=== PATIENT | female | born 1965 | race Caucasian/White ===

== ENCOUNTER 2016-03-14 11:17 | Inpatient (IN) | payer OTHER, MEDICAID ==
--- NOTE | 2016-03-14 11:42 | EDPHY ---
H & P Stated Complaint: Ativan OD - Personal History LMP (Females 10-55): Irregular Current Tetanus/Diphtheria Vaccine: Unsure - Medical/Surgical History Hx Asthma: No Hx Chronic Respiratory Disease: No Hx Diabetes: No Hx Cardiac Disease: No Hx Renal Disease: No Hx Cirrhosis: No Hx Alcoholism: No Hx HIV/AIDS: No Hx Splenectomy or Spleen Trauma: No Other PMH: migraine - Social History Smoking Status: Never smoked Constitutional: Initial Vital Signs Temperature (C) 36.4 C 03/14/16 11:17 Heart Rate 92 03/14/16 11:17 Respiratory Rate 16 03/14/16 11:17 Blood Pressure 132/88 H 03/14/16 11:17 O2 Sat (%) 98 03/14/16 11:17 O2 Delivery Mode Room Air Allergies/Adverse Reactions: corn syrup Allergy (Intermediate, Verified 03/14/16 11:20) MIGRAINES diphenhydramine HCl [From Benadryl] Allergy (Intermediate, Verified 03/14/16 11: 20) Other-Enter Comments metoclopramide HCl [From Reglan] Allergy (Intermediate, Verified 03/14/16 11:20) Other-Enter Comments morphine [Morphine] Allergy (Intermediate, Verified 03/14/16 11:20) Other-Enter Comments tetracycline [Tetracycline] Allergy (Verified 03/14/16 11:20) Hives DAIRY Allergy (Unknown, Uncoded 03/14/16 11:20) Home Medications: Medication Instructions Recorded Amphetamine 03/14/16 Ativan 03/14/16 Oxcarbazepine 03/14/16 Rizatriptan 03/14/16 Tramadol HCl 03/14/16 Trazodone HCl 03/14/16 Zolpidem Tartrate 03/14/16 Medical Decision Making ED Course/Re-evaluation: CHIEF COMPLAINT: Suicide attempt HISTORY OF PRESENT ILLNESS: 50-year-old female who apparently has had some difficulties in relationship and took numerous Ativan this morning in an attempt to kill herself. She is still actively stating that she would like to . She asked me if I could help her . She denies taking anything except somewhere between 7 and 14 1 mg Ativan. She is otherwise not forthcoming with much information. She denies any recent traumas or illness or any significant medical problems. REVIEW OF SYSTEMS: A 10 point review of systems was performed and is negative with the exception of the elements mentioned in the history of present illness. PHYSICAL EXAM: HR, BP, O2 Sat, RR. Temp noted General Appearance: Alert, well hydrated, appropriate, and non-toxic appearing. Head: Atraumatic without scalp tenderness or obvious injury Eyes: Pupils equal, round, reactive to light and accommodation, EOMI, no trauma , no injection. Ears: Clear bilaterally, no perforation, normal landmarks Nose: Atraumatic, no rhinorrhea, clear. Throat: There is no erythema or exudates, no lesions, normal tonsils, mucus membranes moist. Neck: Supple, 2+ carotid upstroke, nontender, no lymphadenopathy. Respiratory: No retractions, no distress, no wheezes, and no accessory muscle use. Lungs are clear to auscultation bilaterally. Cardiovascular: Regular rate and rhythm, no murmurs, rubs, or gallops. Bilateral carotid, radial, dorsalis pedis, and posterior tibial pulses intact. Good capillary refill all extremities. Gastrointestinal: Abdomen is soft, nontender, non-distended, no masses, no rebound, no guarding, no peritoneal signs. Musculoskeletal: Normal active ROM of all extremities, atraumatic. Neurological: Alert, appropriate, and interactive. The patient has normal DTRs and non-focal cranial nerves, motor, sensory, and cerebellar exam. Skin: No rashes, good turgor, no nodules on palpation. Past medical history: Depression, insomnia Past surgical history: Noncontributory Family history: Noncontributory Social history: , children, employed, does not abuse tobacco drugs or alcohol DIFFERENTIAL DIAGNOSIS: The differential diagnosis for the patient's depression included but was not limited to functional and major depression, situational depression, medication side effect, drugs, and alcohol abuse. MEDICAL DECISION MAKING: This patient took several Ativan. Although she is slurring her speech slightly she is alert and oriented. She is asking me to call Wilfrido Jorgensen her close friend and I have done that and he is on his way to the hospital. Laboratory studies including acetaminophen and salicylates levels are pending. Alcohol level is pending although she does not smell like alcohol. She has normal vital signs maintaining her airway well and is not requiring any intervention on my behalf at this time. She has been placed on hold by the [facility]. She will be psychiatrically evaluated once she is clinically sober. (Chato James) 1600: The patient is signed out by Dr. Chato James at change of shift. Awaiting evaluation by Psychiatric Services. I evaluated the patient he is stable. (Shara Lewis) - Data Points Laboratory Results: Laboratory Results 03/14/16 11:35 03/14/16 11:35 03/14/16 03/14/16 11:50 11:35 WBC 6.61 10^3/uL (3.80-9.50) RBC 4.40 10^6/uL (4.18-5.33) Hgb 13.7 g/dL (12.6-16.3) Hct 39.2 % (38.0-47.0) MCV 89.1 fL (81.5-99.8) MCH 31.1 pg (27.9-34.1) MCHC 34.9 g/dL (32.4-36.7) RDW 11.8 % (11.5-15.2) Plt Count 283 10^3/uL (150-400) MPV 9.7 fL (8.7-11.7) Neut % (Auto) 69.0 % (39.3-74.2) Lymph % (Auto) 22.1 % (15.0-45.0) [place] % (Auto) 7.4 % (4.5-13.0) Eos % (Auto) 0.6 % (0.6-7.6) Baso % (Auto) 0.6 % (0.3-1.7) Nucleat RBC Rel Count 0.0 % (0.0-0.2) Absolute Neuts (auto) 4.56 10^3/uL (1.70-6.50) Absolute Lymphs (auto) 1.46 10^3/uL (1.00-3.00) Absolute Monos (auto) 0.49 10^3/uL (0.30-0.80) Absolute Eos (auto) 0.04 10^3/uL (0.03-0.40) Absolute Basos (auto) 0.04 10^3/uL (0.02-0.10) Absolute Nucleated RBC 0.00 10^3/uL (0-0.01) Immature Gran % 0.3 % (0.0-1.1) Immature Gran # 0.02 10^3/uL (0.00-0.10) Sodium 141 mEq/L (134-144) Potassium 4.2 mEq/L (3.5-5.2) Chloride 105 mEq/L (97-110) Carbon Dioxide 26 mEq/l (22-31) Anion Gap 10 mEq/L (8-16) BUN 15 mg/dL (7-23) Creatinine 0.8 mg/dL (0.6-1.0) Estimated GFR > 60 Glucose 100 mg/dL (70-100) Calcium 9.2 mg/dL (8.5-10.4) Beta HCG, Qual NEGATIVE Salicylates 3.4 mg/dL (2.0-20.0) Urine Opiates Screen NEGATIVE (NEGATIVE) Acetaminophen < 10 L mcg/mL (10.0-30.0) Urine Barbiturates NEGATIVE (NEGATIVE) Ur Phencyclidine Scrn NEGATIVE (NEGATIVE) Ur Amphetamine Screen NON-NEGATIVE H (NEGATIVE) U Benzodiazepines Scrn NON-NEGATIVE H (NEGATIVE) Urine Cocaine Screen NEGATIVE (NEGATIVE) U Marijuana (THC) Screen NEGATIVE (NEGATIVE) Ethyl Alcohol < 10 mg/dL (0-10) Departure - Departure Clinical Impression: Polysubstance abuse, Attempted suicide Condition: Serious Referrals: Blossom Zuñiga MD [Primary Care Provider] - As per Instructions
[2016-03-14 11:47] LABS: % IMMATURE GRANULYOCYTES 0.3 % (0.0-1.1); ABSOLUTE IMMATURE GRANULOCYTES 0.02 10^3/uL (0.00-0.10); ADD DIFF? NO; ADD MORPH? NO; ADD SCAN? NO; ATYPICAL LYMPHOCYTE FLAG 0 (0-99); FRAGMENT RBC FLAG 0 (0-99); HEMATOCRIT 39.2 % (38.0-47.0); HEMOGLOBIN 13.7 g/dL (12.6-16.3); LEFT SHIFT FLG 0 (0-99); LIPEMIA HEMOLYSIS FLAG 90 (0-99); MEAN CELL HEMOGLOBIN 31.1 pg (27.9-34.1); MEAN CELL HEMOGLOBIN CONCENTR. 34.9 g/dL (32.4-36.7); MEAN CELL VOLUME 89.1 fL (81.5-99.8); MEAN PLATELET VOLUME 9.7 fL (8.7-11.7); PLATELET CLUMPS FLAG 0 (0-99); PLATELET COUNT 283 10^3/uL (150-400); RED CELL DISTRIBUTION WIDTH 11.8 % (11.5-15.2)
[2016-03-14 12:01] LABS: ANION GAP 10 mEq/L (8-16); CALCIUM 9.2 mg/dL (8.5-10.4); CARBON DIOXIDE 26 mEq/l (22-31); CHLORIDE 105 mEq/L (97-110); CREATININE 0.8 mg/dL (0.6-1.0); ETHANOL SERUM < 10 mg/dL (0-10); GLOMERULAR FILTRATION RATE > 60; GLUCOSE 100 mg/dL (70-100); POTASSIUM 4.2 mEq/L (3.5-5.2); SALICYLATE 3.4 mg/dL (2.0-20.0); SODIUM 141 mEq/L (134-144)
[2016-03-14] MEDS ORDERED: ACETAMINOPHEN 325 MG TAB PO PRN (20:45)
[2016-03-14] MEDS: traZODone 50 MG TAB PO PRN (21:24)
[2016-03-14] MEDS: ZOLPIDEM TARTRATE 5 MG TAB PO PRN (21:24)
[2016-03-15 06:13] VITALS: O2SAT 94
[2016-03-15] MEDS ORDERED: NON-FORMULARY NEW DRUG OP PRN ×2 (13:39→14:58)
[2016-03-15] MEDS: NON-FORMULARY NEW DRUG OP PRN ×3 (17:57→22:05)
[2016-03-15] MEDS: hydrOXYzine HCL 50 MG TAB PO PRN (19:29)
[2016-03-15] MEDS ORDERED: LORazepam 1 MG TAB PO ONE (20:00)
--- NOTE | 2016-03-15 20:40 | SOAPPROG ---
SOAP Progress Note Assessment/Plan: Assessment: Plan: Objective: Vital Signs Temp Pulse Resp BP Pulse Ox 36.6 C 91 12 93/61 L 94 03/15/16 06:00 03/15/16 06:00 03/15/16 06:00 03/15/16 06:00 03/15/16 06:00 ICD10 Worksheet Patient Problems: Problems Problem Status Diagnosed Attempted suicide Acute DVT prophylaxis Acute Headache Acute Polysubstance abuse Acute Thrombocytopenia Acute Travel sickness Acute Elevated liver enzymes Acute
[2016-03-15] MEDS ORDERED: OXcarbazepine 300 MG TAB PO SCH (21:00)
--- NOTE | 2016-03-15 21:48 | BCON ---
[f rep st] BEHAVIORAL HEALTH CONSULTATION INTERNAL MEDICINE CONSULTATION DATE OF CONSULTATION: 03/15/2016 REFERRING PHYSICIAN: Denise Austin MD REASON FOR CONSULTATION: Medical clearance for Inpatient Behavioral Health stay. HISTORY OF PRESENT ILLNESS: Mrs. White came to the [facility] Emergency Department on an M1 hold by [place] [employer]. She had had an intentional overdose on lorazepam in a suicide attempt. She was evaluated by the Mental Health Team and admitted for further psychiatric care. She currently complains of irritation to her left eye, saying it feels like sandpaper, and reports a recent vitrectomy. She reports that she was prescribed serum tears which is a tear drop involving her own blood serum formulated by the Ophthalmology Department at the [facility] in [place] where she had the vitrectomy. Otherwise, she is without any acute complaints. PAST MEDICAL HISTORY: 1. Depression. 2. Migraine headaches. 3. Likely dengue fever in 2013 following a trip to [facility]. 4. Apparently she describes a retinal detachment for which she needed the vitrectomy. PAST SURGICAL HISTORY: Vitrectomy approximately 3-4 weeks ago. MEDICATIONS: Prior to admission: 1. Tramadol 50 mg p.o. q.6 hours p.r.n. 2. Serum tears 1 drop each eye p.r.n. 3. Naphazoline/pheniramine eyedrops 1 drop p.r.n. 4. Dextroamphetamine/amphetamine 2.5 mg b.i.d. p.r.n. 5. Cyclosporine ophthalmic drops 1 drop each eye b.i.d. 6. Estradiol vaginal suppository q.h.s. 7. Clindamycin topical daily p.r.n. 8. Trazodone 25 mg p.o. q.h.s. 9. Bupropion SR 100 mg p.o. daily. 10. Zolpidem 5 mg p.o. q.h.s. 11. Rizatriptan 10 mg p.o. daily p.r.n. 12. Oxcarbazepine 150 mg p.o. q.h.s. 13. Lorazepam 0.5 mg p.o. q.h.s. ALLERGIES: There are allergies listed to corn syrup which causes migraines, to diphenhydramine, metoclopramide, morphine, to tetracycline which causes hives, and she has a dairy allergy. SOCIAL HISTORY: She is a single mother. 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 She denies a history of smoking or alcohol or other substance abuse. FAMILY HISTORY: Noncontributory. REVIEW OF SYSTEMS: Other than a dry, scratchy eye on the left, a 10-point review of systems was conducted and was negative. PHYSICAL EXAM: VITAL SIGNS: Blood pressure at 6 o'clock this morning was 93/61 , heart rate was 91, respiratory rate was 12, oxygen saturation was 94% on room air, temperature was 36.6 degrees centigrade, her weight is 61.2 kg for a body mass index of 21.1. GENERAL: This is a well-nourished, well-developed woman who appears her chronologic age. Cooperative and in no acute distress. HEENT. Extraocular movements are intact. There is no scleral erythema or injection or conjunctival erythema. Pupils are equal, round, and reactive to light. Mucous membranes are moist. Dentition is in good condition. NECK: Supple. HEART: There is a regular rate and rhythm with no murmurs, rubs, or gallops. LUNGS: Clear to auscultation bilaterally. ABDOMEN: Soft, nontender, nondistended with normoactive bowel sounds. EXTREMITIES: There is no cyanosis , clubbing, or edema. Radial and dorsalis pedis pulses are 2+ bilaterally. NEUROLOGIC: She is alert and oriented x3. Cranial nerves II through XII are grossly intact. There is no focal weakness. Sensation is intact to light touch and gait is within normal limits. LABORATORY DATA: Laboratory studies drawn in the emergency department: CBC was entirely within normal limits. Serum chemistry revealed normal renal function and electrolytes. Beta-hCG was negative for . Toxicology screen in the serum was positive for salicylates, but at nontoxic level of 3.4, it was negative for acetaminophen or ethyl alcohol. Urine toxicology screen was positive for amphetamines and benzodiazepines, both of which are prescribed. ASSESSMENT AND RECOMMENDATIONS: 1. Mental health issues pending further evaluation and management per Psychiatry and the Mental Health Team. 2. Eye irritation following vitrectomy in the left eye. Advise continuing her serum eyedrops which she has brought in and I will place that order. 3. Intentional overdose. She appears to have no lasting adverse effects. I see no medical contraindications to the patient's continued stay in the Inpatient Behavioral Health unit or to any psychiatric medications or procedures. Thank you very much for including me in the care of this patient, and please do not hesitate to contact me or the Hospitalist Service should there be need for further medical evaluation. /[id number]/MODL MTDD
[2016-03-15] MEDS: traZODone 50 MG TAB PO PRN (22:11)
[2016-03-15] MEDS: ZOLPIDEM TARTRATE 5 MG TAB PO PRN (22:11)
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
[2016-03-16] MEDS: hydrOXYzine HCL 50 MG TAB PO PRN (03:57)
[2016-03-16] MEDS: NON-FORMULARY NEW DRUG OP PRN ×5 (04:08→15:54)
[2016-03-16 04:24] VITALS: BP 106/67; PULSE 96; RESP 13; TEMP 98.1
[2016-03-16] MEDS ORDERED: LORazepam 0.5 MG TAB PO ONE (16:00)
[2016-03-16] MEDS ORDERED: LORazepam 0.5 MG TAB PO PRN (16:21)
--- NOTE | 2016-03-16 22:26 | BDS ---
[f rep st] BEHAVIORAL HEALTH DISCHARGE SUMMARY REASON FOR ADMISSION: Overdose of Ativan and suicide attempt following acute relationship stressor. HISTORY OF PRESENT ILLNESS: The patient is a 50-year-old, twice- female with prior psychiatr ic history of depression, anxiety, and adult ADHD, who had been in a relationship for 1-1/2 years, wh ich was very emotionally intense and intimate; however, she began suspecting problems with her relati onship with her partner being dishonest and over the past week was justified in her concerns, finding out he had told her "extensive lies" and continued in a relationship with his . She felt acutel y distraught after he decided to stay with the other woman. She subsequently overdosed on lorazepam, taking an amount she thought would cause respiratory depression but just after doing so regretted he r actions and sought help. She had no prior suicide attempts nor hospitalizations for psychiatric re asons. She reports being a successful single mother of two and found herself completely in love with this individual, stating he was also like a father to her children. She was brought in to [facility] by ambulance after daughter called 911. Prior to overdose, the patient was attempt ing to call friends for support and also called several therapists, attempting to make an appointment as soon as possible. One therapist contacted her and recognized her distress and spoke with the alldarby ch to call 911. Four days prior to admission, the patient admitted not sleeping well because of h er emotional distress and using her Adderall twice daily instead of once daily p.r.n. Urine drug scr een for positive for benzodiazepines and amphetamines on admission. There were no concerns for subst ance use issues. DIAGNOSES ON DISCHARGE: Status post suicide attempt by overdose on benzodiazepines, resolved. 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 Depressive disorder, unspecified. Ge neralized anxiety disorder, by history. Adult attention deficit hyperactivity disorder, by history. Rule out cyclothymic disorder versus bipolar disorder type 2 versus borderline personality disorder. Additional focus of clinical attention is a V61.1 code, relationship distress with intimate partner . HOSPITAL COURSE: 1. Psychiatric: The patient was admitted and once on the inpatient unit was quite consistently expr essing regret over her actions and surprise that she had allowed this relationship to cause her to ac t in such a way where she risked her life. She was initially quite upset about being hospitalized, s tating she needed to be home with her family, and received support from her friends and a comfortable environment; however, she settled into the unit and attended groups, communicated openly with staff, and slept well. She was able to process her recent stressor and also use the opportunity to contact some close friends, whom she had not been in of much recent contact. She felt reaching out to her f riends and sharing more of what had happened recently was very supportive. Regarding medications, se veral options were discussed. She felt her psychiatric, who knew her the longest and had retired per [facility] 1 or 2 years ago, did consider a diagnosis of "borderline bipolar" and started her on Trileptal 150 mg in the past. The patient was agreeable to increase this to 300 mg p.o. q.h.s., stating that 1 50 mg b.i.d. was too sedating in the morning. She understands this was off-label use of a mood stabi lizer, and risks were discussed. She continued on her usual nighttime medications for sleep, and she was not given any Adderall. She was advised not to continue with Adderall at this time. She admitt ed this caused her to feel "speedy," and usually she took 2.5 mg daily p.r.n., although it was prescr ibed 2.5 b.i.d. p.r.n. She reports taking this medication twice, 1/2 tablet as prescribed twice yariel y for the last several days because she was unable to sleep and felt she needed this to focus and con centrate during the days prior to admission. She did prefer to continue with her Wellbutrin for depr ession as she felt this medication would be important as she continues to cope with the reality of he r relationship situation. Importance of sleep was discussed. Also, symptoms of hypermania were revi ewed. The patient consistently denied any symptoms consistent with hypomania or pillo episodes in past, except for having described herself as baseline a happy, outgoing person, sometimes with good energy, outgoing, and engaging, but also having periods of time when she has trouble sleeping but ne avis decreased need for sleep. No history of racing thoughts or manic symptoms but described herself as a "type A" personality and obsessive compulsive at times. Although she felt her relationship was wonderful over the past year and a half, she does admit having progressively isolated herself from he r friends and found herself being much less social with others and less engaged as before. No other notable medication changes were made. She did try hydroxyzine 25 mg twice during her hospital stay a nd felt this made her too "groggy." She preferred to continue with her outpatient prescription of lo razepam 0.5 mg b.i.d. p.r.n. 2. Medical: There were no acute medical issues during her hospital stay. 3. Legal: The patient was admitted on an M1 hold. The hold was terminated at time of discharge. T here was no criteria met to continue hold nor to certify patient for treatment. 4. Safety: The patient initially had reported SI with intent to harm self while in ED, initially ex pressing anger and frustration that she did not take enough and also upset that her boyfriend did not come visit her in the emergency room. Shortly thereafter, she expressed regret and reported this de cision was impulsive and could not believe she had attempted to harm herself. She expressed good ins ight into reason for hospitalization. She stated this was a "situational problem, I just have to miriam l with it, time will heal." On day of discharge, she felt that all of her emotions were not quite as acute and did talk of a "huge decision" she made about being more honest with people, including her friends, many of whom she did not speak with about her relationship issues nor even her stressors wit h her daughter's hospitalization last fall. She felt holding all this stress inside and keeping it t o herself, this was not helpful for her nor for her healing and moving forward. She did a lot of wri ting while on the unit to help get her feelings on paper. She consistently expressed future-oriented thinking, motivation for treatment, and insight. She denied any suicidal ideation, even fleeting, n or thoughts, plan, or intent to harm herself. She also denied any thoughts of harming others nor of any retaliation towards her ex-boyfriend. She was a bit upset and surprised that he and his ser steven her a restraining order, which she found out about on day of discharge, but also feels this was a positive thing and will help her also not contact him when she feels weak emotionally. She reported also feeling much support from several friends and did feel that her sharing and reaching out to her friends was very helpful for her emotionally while on the unit and moving forward. She completed a safety plan on the unit and has planned to have a good friend pick her up and spend the rest of the d ay with her. She felt safe returning home and plans to follow up with therapy and keep her intake ap pointment as arranged. MENTAL STATUS EXAM: On discharge, the patient was casually dressed, neatly groomed/well kempt. Good eye contact. Normal volume and rate of speech. Articulate and engaged. Mood was "better. It stil l hurts, but I know it will pass. Time will heal." Affect was appropriate range, controlled. Thoug ht processes were linear, goal directed, future oriented. There was no evidence of delusion. Though t content: Consistently denied any suicidal ideation, "none at all." No thoughts of harming others or HI. Insight good. Judgment good. Cognition: Alert and oriented x4, intact. DISCHARGE PLAN: The patient has an intake appointment at [facility] March 19. It was discussed that she would benefit from DBT-type therapy, also group therapy and individual therapy. She will pl an to establish psychiatric followup at [facility] as well. She did not feel very connected to her [facility] psychiatrist, whom she only sees once every 3 months, and he "just refills my prescriptions." She also has 2 other therapist options if [facility] does not work out for some reason. She completed her safe ty plan and was informed that she could call crisis line or 911 if she had any thoughts of harming he rself again. She agreed to do that. /[id number]
== END 2016-03-16 16:45 | disposition home or self-care (01) | DRG 882 ==
LOC: EDUNIT# → EEVIPCON 11:17 → BBEH 19:00
PROVIDERS: ADMIT Psychiatry & Neurology Behavioral Neurology & Neuropsychiatry; ATTEND Psychiatry & Neurology Behavioral Neurology & Neuropsychiatry
DX: F43.25 Adjustment disorder with mixed disturbance of emotions and conduct (principal); T42.4X2A Poisoning by benzodiazepines, intentional self-harm, initial encounter; F90.1 Attention-deficit hyperactivity disorder, predominantly hyperactive type; F41.1 Generalized anxiety disorder; Z63.79 Other stressful life events affecting family and household; G43.909 Migraine, unspecified, not intractable, without status migrainosus
CPT/HCPCS: 80305; G0480

== ENCOUNTER → 2016-12-04 | Outpatient (CLI) | payer MEDICAID | LOC: BMCIMAGING 12:13 | PROVIDERS: ATTEND Family Medicine | DX: M25.571 Pain in right ankle and joints of right foot (principal) ==

== ENCOUNTER → 2016-12-28 | Outpatient (CLI) | payer MEDICAID | LOC: BMCIMAGING 15:04 | PROVIDERS: ATTEND Family Medicine | DX: M25.521 Pain in right elbow (principal) ==

== ENCOUNTER → 2018-06-19 | Outpatient (CLI) | payer OTHER | LOC: FIMAGING 15:24 | PROVIDERS: ATTEND Obstetrics & Gynecology | DX: Z12.31 Encounter for screening mammogram for malignant neoplasm of breast (principal); Z80.3 Family history of malignant neoplasm of breast ==